=== PATIENT | male | born 1990 | race Two or more races ===

== ENCOUNTER 2018-05-14 07:03 | Outpatient (CLI) | payer OTHER | END 2018-05-14 07:04 | disposition critical access hospital (66) | LOC: EMS 07:03 | PROVIDERS: ATTEND Surgery | DX: M25.512 Pain in left shoulder (principal); V43.52XA Car driver injured in collision with other type car in traffic accident, initial encounter; Y92.414 Local residential or business street as the place of occurrence of the external cause | CPT/HCPCS: A0425; A0429 ==

== ENCOUNTER 2018-05-14 07:26 | Emergency (ER) | payer OTHER ==
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
[2018-05-14 09:44] VITALS: BP 120/85
== END 2018-05-14 09:44 | disposition home or self-care (01) ==
LOC: ED 07:26
DX: S20.219A Contusion of unspecified front wall of thorax, initial encounter (principal); S16.1XXA Strain of muscle, fascia and tendon at neck level, initial encounter; V43.52XA Car driver injured in collision with other type car in traffic accident, initial encounter; Y92.411 Interstate highway as the place of occurrence of the external cause
CPT/HCPCS: 72125; 99283

== ENCOUNTER 2021-10-28 22:58 | Emergency (ER) | payer OTHER ==
[2021-10-28 23:37] LABS: BILIRUBIN,URINE NEGATIVE (NEGATIVE); GLUCOSE, URINE (UA) NEGATIVE (NEGATIVE); KETONES,URINE (UA) NEGATIVE (NEGATIVE); LEUKOCYTE ESTERASE, URINE NEGATIVE (NEGATIVE); NITRITE,URINE NEGATIVE (NEGATIVE); OCCULT BLOOD,URINE NEGATIVE (NEGATIVE); PROTEIN,URINE NEGATIVE (NEGATIVE); UROBILINOGEN,URINE 0.2 (NORMAL) E.U./dL (NORMAL)
[2021-10-28 23:39] LABS: CLARITY,URINE CLEAR (CLEAR)
--- OUTSIDE RECORDS SUMMARY | 2021-10-28 23:41 | EXTERNAL MEDICAL SUMMARY RPT | Continuity of Care Document ---
:1990 Author Organization [facility] Address [address] [place] [address] Phone Care Team Providers Name Role Phone Remyk Unavailable Unavailable Allergies No information. Encounters No information. Medications date description facility 20211026 Sumatriptan 100 MG Oral Tablet [facility] Problems date description facility [id number] blood in urine [facility] [id number] Urine Problem [facility] Procedures date description facility [id number] General Physician [facility] Results No information. Vital Signs date measurement value source 20211025 weight_standard 84.82 lb 20211025 weight_metric 38.47 kg 20211025 temperature_standard 97.9 F 20211025 temperature_metric 36.61 C 20211025 height_standard 69 in 20211025 height_metric 175.26 cm 20211025 BMI 27.6 kg/m2 20211026 respiration_rate 18 /min 20211026 heart_rate 67 /min 20211026 BP_systolic 101 mm[Hg] 20211026 BP_diastolic 66 mm[Hg]
[2021-10-29] MEDS ORDERED: KETOROLAC 30 MG/ML VIAL IVP STA (00:03)
[2021-10-29] MEDS ORDERED: MORPHINE 2 MG/ML CARPUJECT IVP STA (00:04)
[2021-10-29 00:22] LABS: BASOPHILS # (AUTO) 0.1 10^3/uL (0.0-0.1); EOSINOPHILS # (AUTO) 0.1 10^3/uL (0.0-0.7); EOSINOPHILS % (AUTO) 1.9 %; HCT - HEMATOCRIT 47.6 % (42.0-52.0); HGB - HEMOGLOBIN 16.6 g/dL (14.0-18.0); LYMPHOCYTES # (AUTO) 2.7 10^3/uL (1.5-3.5); LYMPHOCYTES % (AUTO) 38.7 %; MEAN CORPUSCULAR HEMOGLOBIN 30.9 pg (27.0-31.0); MEAN CORPUSCULAR HGB CONC 34.9 g/dL (32.0-36.0); MEAN CORPUSCULAR VOLUME 88.5 fL (80.0-94.0); MEAN PLATELET VOLUME 10.3 fL (7.4-11.4); MONOCYTES # (AUTO) 0.6 10^3/uL (0.0-1.0); MONOCYTES % (AUTO) 9.1 %; NEUTROPHILS # (AUTO) 3.3 10^3/uL (1.5-6.6); NEUTROPHILS % (AUTO) 48.9 %; PLT - PLATELET COUNT 221 10^3/uL (130-450); RED BLOOD COUNT 5.38 10^6/uL (4.70-6.10); RED CELL DISTRIBUTION WIDTH 12.4 % (12.0-15.0); WHITE BLOOD COUNT 6.8 x10^3/uL (4.8-10.8)
[2021-10-29] MEDS ORDERED: IOPAMIDOL-300 100 ML VIAL ONE (00:29)
[2021-10-29 00:30] LABS: CREATININE 0.9 mg/dL (0.6-1.2)
[2021-10-29] MEDS ORDERED: IOPAMIDOL-300 100 ML VIAL IVP ONE (01:22)
--- NOTE | 2021-10-29 02:23 | CT Report ---
PROCEDURE: IVP INDICATIONS: left flank pain, intermittent hematuria CONTRAST: IV CONTRAST: Isovue 300 ml: 140 PO CONTRAST: *NO PO CONTRAST TECHNIQUE: After the administration of oral and intravenous contrast, 5 mm thick sections acquired from the diap hragms to the symphysis. 5 mm thick coronal and sagittal reformats were acquired. For radiation dos e reduction, the following was used: automated exposure control, adjustment of mA and/or kV accordin g to patient size. COMPARISON: None. FINDINGS: Image quality: Excellent. Lung bases: Lung bases are clear. Heart size is normal. Urinary system: Kidneys demonstrate no renal stones, hydronephrosis, or discrete mass. Contrast-fille d renal calyces are normal in morphology without suspicious filling defects. Contrast filled portion s of both ureters are normal in caliber. The urinary bladder is partially distended. There is suggest ion of mild concentric bladder wall thickening. Solid organs: Evaluation of the liver demonstrates no focal hepatic lesions. Gallbladder appears wit hin normal limits without calcified gallstones. Biliary system is non dilated. The spleen is normal in size. Pancreas enhances normally without peripancreatic fat stranding or fluid collections. No ad renal nodules. Peritoneum and bowel: Bowel loops demonstrate normal wall thickness and caliber. There are surgical sutures along the cecum likely from sequela of prior appendectomy. There are a few colonic diverticul a without acute diverticulitis. No free fluid or air. Nodes and vessels: No retroperitoneal or mesenteric adenopathy by size criteria. Aorta and inferior vena cava are normal in size. Abdominal wall: No ventral hernias. Pelvis: No pathologic free pelvic fluid. No inguinal hernias or adenopathy. Bones: No suspicious bony lesions. No vertebral body compression fractures. IMPRESSION: 1. No evidence of nephrolithiasis or obstructive uropathy. 2. No discrete renal mass or suspicious filling defects within the renal collecting systems. 3. Partially distended urinary bladder suggestive of a cystitis. Reviewed by: Regis Merchant MD on 10/29/2021 2:22 AM PDT Approved by: Regis Merchant MD on 10/29/2021 2:22 AM PDT Station ID: [email or web address]
[2021-10-29] MEDS ORDERED: HYDROcod/ACETAM 5/325 MG TABLET PO STA (02:50)
[2021-10-29 03:02] VITALS: BP 107/82
--- NOTE | 2021-10-31 21:50 | ED Physician Documentation ---
PD HPI ABD PAIN - Stated complaint Stated Complaint: BLOOD IN URINE, ABD PX - Chief complaint Chief Complaint: Abd Pain - History obtained from History obtained from: Patient - History of Present Illness Timing - onset: Enter time (21:30), Today Timing - details: Abrupt onset, Waxing and waning Pain level now: 6 Quality: Pain Location: LUQ Radiation: Left flank Improved by: Other (nothing) Worsened by: Other (no ameliorating factors) Associated symptoms: Hematuria. No: Fever, Vomiting, Diarrhea, Constipation Recently seen: Emergency Dept (see below) - Additional information Additional information: patient c/o abdominal pain, left-sided radiating to left flank, with gross hematuria. He says the symptoms started suddenly tonight at approximately 9:30 PM with , per patient, large blood clots passed via urethra. He says he has had similar episodes before and has had w/u without diagnostic findings. He says he has a urologist who has recommended the next test to be CT A/P with IV contrast; patients description of this test is s/o CT IVP. He says previous / recent CT A/P only revealed a thickened bladder wall and thus no obvious cause of symptoms and signs established at this time. Review of Systems Constitutional: reports: Reviewed and negative Cardiac: reports: Reviewed and negative GI: reports: Abdominal Pain. denies: Abdominal Swelling, Nausea, Vomiting, Constipation, Diarrhea, Hematemesis, Bloody / black stool : reports: Hematuria. denies: Dysuria, Frequency, Testicular pain Skin: denies: Rash PD PAST MEDICAL HISTORY - Past Medical History Past Medical History: Yes Neuro: Migraines - Past Surgical History Past Surgical History: Yes General: Appendectomy - Present Medications Home Medications: Ambulatory Orders Medication Instructions Recorded Confirmed Cyclobenzaprine [Flexeril] 10 mg PO TID PRN #20 tablet 05/14/18 HYDROcod/ACETAM 5/325 [Indian 5/325] 1 - 2 tablet PO Q6H PRN #14 tablet 10/29/21 - Allergies Allergies/Adverse Reactions: Allergies Allergy/AdvReac Type Severity Reaction Status Date / Time No Known Drug Allergies Allergy Verified 05/14/18 07:57 - Social History Does the pt smoke?: No Smoking Status: Never smoker Does the pt drink ETOH?: Yes Does the pt have substance abuse?: No - Immunizations Immunizations are current?: Yes PD ED PE NORMAL - Vitals Vital signs reviewed: Yes - General General: Alert and oriented X 3, Well developed/nourished, Other (appears uncomfortable at times during H+P, intermittently clutches left flank) - Cardiac Cardiac: RRR, No murmur - Respiratory Respiratory: No respiratory distress, Clear bilaterally - Abdomen Abdomen: Normal bowel sounds, Soft, Non tender, Non distended - Back Back: No CVA TTP - Derm Derm: Normal color, Warm and dry, No rash Results - Vitals Vitals: Oxygen O2 Source Room air - Labs Labs: Laboratory Tests 10/28/21 10/29/21 10/29/21 23:23 00:13 00:13 WBC 6.8 RBC 5.38 Hgb 16.6 Hct 47.6 MCV 88.5 MCH 30.9 MCHC 34.9 RDW 12.4 Plt Count 221 MPV 10.3 Neut # (Auto) 3.3 Lymph # (Auto) 2.7 [place] # (Auto) 0.6 Eos # (Auto) 0.1 Baso # (Auto) 0.1 Absolute Nucleated RBC 0.00 Nucleated RBC % 0.0 Sodium 139 Potassium 4.0 Chloride 104 Carbon Dioxide 28 Anion Gap 7.0 BUN 19 Creatinine 0.9 Estimated GFR (MDRD) 98 Glucose 107 H Calcium 9.0 Urine Color YELLOW Urine Clarity CLEAR Urine pH 6.0 Ur Specific [place] 1.025 Urine Protein NEGATIVE Urine Glucose (UA) NEGATIVE Urine Ketones NEGATIVE Urine Occult Blood NEGATIVE Urine Nitrite NEGATIVE Urine Bilirubin NEGATIVE Urine Urobilinogen 0.2 (NORMAL) Ur Leukocyte Esterase NEGATIVE Ur Microscopic Review NOT INDICATED Urine Culture Comments NOT INDICATED - Rads (name of study) CTA IVP Radiology: Prelim report reviewed, See rad report PD MEDICAL DECISION MAKING - ED course Complexity details: reviewed old records, reviewed results, re-evaluated patient, considered differential, d/w patient ED course: [facility] record reflects tonight is 7th ED visit over past 7 months to 5 different EDs. Other visits chief complaints include c/o as well as headache/migraine. Tonights test results are without any concerning or diagnostic results. Normal results on CBC, BMP, and UA. Despite c/o large blood clots per urethra earlier this evening, no RBC on tonights sample. CT A/P / IVP is interpreted by radiologists as possible urinary bladder distention and possible concentric bladder wall thickening; patient indicates he has has similar findings on previous CT A/P. He does not describe UTI symptoms and there are no findings on UA to support UTI/cystitis diagnosis. I reviewed results with patient and advised him to f/u with his urologist for further study at the urologists discretion. If not already performed, patient might benefit from cystoscopy. Departure - Departure Disposition: 01 Home, Self Care Clinical Impression: Left flank pain Condition: Good Instructions: ED Flank Pain Uncertain Cause Prescriptions: HYDROcod/ACETAM 5/325 [Indian 5/325] 1 - 2 tablet PO Q6H PRN #14 tablet PRN Reason: Pain Comments: The cause of your symptoms is not apparent based on tonight's test results. The blood tests and urinalysis are all normal, and the CT scan (performed with contrast in a way that highlights the kidney, ureters, and bladder: this is called CT IVP) shows no abnormalities except some concentric bladder wall thickening, the significance of which is unclear (and you have indicated this has been noted on previous tests). Follow up with your urologist, call Sunday to arrange for next available appointment and to let them know you had the CT IVP performed tonight. A prescription for hydrocodone with acetaminophen has been electronically submitted to the [facility] pharmacy in [place]. I am prescribing a short course of narcotic pain medication for you. These are potentially dangerous and addictive medications that should be used carefully. These medications may constipate you. Take an [id number] stool softener (docusate) twice daily with plenty of water while taking these medications. If you go 24 hours without a bowel movement, take ekvv-[id number] miralax, per package instructions. Do not drink or drive while taking these medications. If you received narcotic or sedating medications while in the emergency department, do not drive for 24 hours. Store this medication in a safe, secure place and out of reach of children. It is a violation of federal law to give or sell this medication to another person or to use in a manner other than prescribed. The ED will not refill narcotic prescriptions, including prescriptions lost or stolen. To dispose of unwanted medications: 1. [facility] [address] in [place] has a medication drop box. They accept prescription medications (in p ill form) Sunday through Sunday 9:00 a.m. to 5:00 p.m. 2. [facility] [employer] accepts prescription medications (in pill form only) for disposal year round. Call for more information. 3. Contact the [facility] for the next [facility] sponsored prescription drug collection event. , [phone], or [phone]; Discharge Date/Time: 10/29/21 03:06
== END 2021-10-29 03:06 | disposition home or self-care (01) ==
LOC: ED 22:58
DX: R31.0 Gross hematuria (principal); R10.12 Left upper quadrant pain
CPT/HCPCS: 36415; 74178; 80048; 81003; 85025; 96374; 99284; A9270; Q9967; 81001; 87086